=== PATIENT | female | born 1980 | race Caucasian/White ===

== ENCOUNTER 2016-12-19 22:11 | Emergency (ER) | payer BC, OTHER ==
[~2016-12-19] VITALS: Ht 170.2 cm; Wt 62.6 kg
[~2016-12-19 22:11] MED LIST: BCPILLS PO; BUPRTAB51 PO; CNC/54 PO; FLNIN NAE; LORA10CA2 PO; OLOP0.1S2 OPB
[2016-12-19 22:15] VITALS: BP 125/83; TEMP 36.7; Ht 170.2 cm; Wt 62.6 kg
[2016-12-19] MEDS ORDERED: FLUT0.15 NAE (23:07)
[2016-12-19] MEDS ORDERED: LEVO25TA5 PO (23:07)
--- NOTE | 2016-12-19 23:18 | DIAGNOSTIC IMAGING REPORT ---
LEFT HAND MIN 3 VIEWS ROUTINE CLINICAL HISTORY: Left hand/thumb injury. COMPARISON: None FINDINGS: Alignment of the left hand is anatomic. Carpal bones are intact. No acute fracture is identified within the left hand. IMPRESSION: No acute fracture or dislocation of the left hand. Electronically signed by: Jaxson Ernst M.D. 12/19/2016 11:16 PM Dictated Date/Time: 12/19/2016 11:15 PM
[2016-12-19] MEDS ORDERED: NORCO 5/325MG HOME PACK PO ONE (23:45)
[2016-12-20] VITALS: PULSE 81; O2SAT 97
--- NOTE | 2016-12-20 00:16 | EMERGENCY ROOM VISIT NOTE ---
ED Visit Note First contact with patient: 22:22 CHIEF COMPLAINT: Hand injury HISTORY OF PRESENT ILLNESS: This 36-year-old female patient presented to the emergency department after they injured the left hand about 3 hours ago. The patient states that she was trying to pop a larger balloon, and struck her left hand at the base of the thumb with her right hand. The patient rates the pain as dull and 7/10. The patient denies any numbness or tingling. The patient does not have injuries to the wrist. The patient has not had a previous fracture to this hand. REVIEW OF SYSTEMS: A 6 system review of systems was completed with positives and pertinent negatives in the HPI. 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 GENERAL : White female, in no acute distress, but appears to be in pain, well-developed , well-nourished. MUSCULOSKELETAL: There is no deformity of the left hand. There is tenderness over the base of the thumb into the distal radius. There is no thenar or hypothenar eminence atrophy. Normal thumb opposition to all fingers. 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 There is no laceration. Capillary refill less than 2 seconds. No tenderness of the fingers or wrist. Full range of motion of the wrist. No snuff box tenderness. Radial pulse 2+. NEURO: Alert and oriented to person, place, and time. Normal sensation to light and sharp touch. LEFT HAND MIN 3 VIEWS ROUTINE CLINICAL HISTORY: Left hand/thumb injury. COMPARISON: None FINDINGS: Alignment of the left hand is anatomic. Carpal bones are intact. No acute fracture is identified within the left hand. IMPRESSION: No acute fracture or dislocation of the left hand. EMERGENCY DEPARTMENT COURSE: Physical exam and history were performed. Nursing notes and EMR were reviewed. The patient appears to have left hand pain after striking it with her right hand. X-ray was obtained and does not show evidence of fracture dislocation. The patient will be given a home pack of Vicodin and treated conservatively with [id number] analgesics. She was to follow with her primary care physician with any ongoing or persisting symptoms. Problem List Medical Problems: (1) Attention deficit hyperactivity disorder, predominantly inattentive type Status: Chronic (2) Depression Status: Chronic (3) Raynaud's phenomenon Status: Chronic (4) s/p excisional biospy cervical lymph node Permanent Comment: 2006 Path: benign with reactive hyperplasia Status: Resolved (5) Solitary nodule of lung Permanent Comment: 4.5 mm RUL nodule noted on CT chest [facility] 10/16/11. Status: Chronic Current/Historical Medications Scheduled Control Pills ( Control Pills), 1 TAB PO DAILY Bupropion Hcl (Wellbutrin Xl), 300 MG PO DAILY Fluticasone Propionate (Nasal) (Flonase Allergy Relief), 2 SPRAYS ANGELITO DAILY Levothyroxine Sodium (Levothyroxine Sodium), 25 MCG PO DAILY Loratadine (Claritin), 10 MG PO DAILY Methylphenidate Hcl (Concerta), 54 MG PO DAILY Allergies Coded Allergies: No Known Allergies (Verified , 12/19/16) Vital Signs Date Time Temp Pulse Resp B/P (MAP) Pulse Ox O2 Delivery O2 Flow Rate FiO2 12/20/16 00:00 81 17 97 12/19/16 22:15 36.7 74 18 125/83 97 Room Air Medications Administered Medications (Trade) Dose Ordered Sig/Kaley Route Start Time Stop Time Status Last Admin Dose Admin Acetaminophen/ Hydrocodone Bitart ([place] 5/325mg Home Pack) 1 homepack UD ONCE PO 12/19/16 23:45 12/19/16 23:46 DC 12/19/16 23:58 1 HOMEPACK Departure Information Impression Primary Impression: Contusion of left hand Dispostion Home / Self-Care Condition GOOD Forms HOME CARE DOCUMENTATION FORM, IMPORTANT VISIT INFORMATION Patient Instructions My [facility] Additional Instructions You were seen and evaluated today on an emergency basis only. This is not a substitute for, or an effort to provide, complete comprehensive medical care. It is not possible to recognize and treat all injuries or illnesses in a single emergency department visit. For this reason it is recommended that you followup with your primary care physician if symptoms persist over the next week. For baseline pain relief you may alternate ibuprofen and acetaminophen every 4 hours for pain control. Take 600 mg ibuprofen (Advil) and then 4 hours later take 1000 mg acetaminophen (Tylenol). Do not take more than 3000 mg acetaminophen in a single day. [place] (hydrocodone/acetaminophen) 5/325 mg (homepack) every 6 hours as needed for worsening breakthrough pain. Do not drink or drive on [place]. This medication will likely make you tired. Do not take [place] and Tylenol at the same time as both contain acetaminophen. [place] may cause constipation. You may wish to take an [id number] stool softener like Colace if this occurs. You are welcome to return to the emergency department anytime with new, worsening, or concerning symptoms.
== END 2016-12-20 | disposition home or self-care (01) ==
LOC: C.EDB 22:11 → C.EDC 12-20
DX: S60.222A Contusion of left hand, initial encounter (principal); W22.8XXA Striking against or struck by other objects, initial encounter; F90.9 Attention-deficit hyperactivity disorder, unspecified type; F32.9 Major depressive disorder, single episode, unspecified; Z79.899 Other long term (current) drug therapy; Z98.890 Other specified postprocedural states

== ENCOUNTER 2017-06-12 22:06 | Emergency (ER) | payer OTHER ==
[~2017-06-12] VITALS: Ht 170.2 cm; Wt 65.0 kg
[~2017-06-12 22:06] MED LIST changes: -CNC/54 PO; -FLNIN NAE; -OLOP0.1S2 OPB
[2017-06-12 22:10] VITALS: TEMP 36.3; Ht 170.2 cm; Wt 65.0 kg
[2017-06-12] MEDS ORDERED: METHYLPREDNISOLONE 125 MG VIAL IV STA (22:13)
[2017-06-12] MEDS ORDERED: FAMOTIDINE 20MG/5ML IV PUSH IV STA (22:13)
[2017-06-12] MEDS ORDERED: EPINEPHRINE ADULT AUTO-INJECT 0.3 MG SYR IM ONE (22:15)
[2017-06-12 22:48] VITALS: O2SAT 100
[2017-06-12] MEDS ORDERED: LEVO50TA6 PO (22:49)
[2017-06-12] MEDS ORDERED: ALUMINUM/MAGNESIUM SUSP 30 ML UDC PO STA (23:03)
[2017-06-12] MEDS ORDERED: LIDOCAINE HCL 2% VISC SOLN 20 ML UDC PO STA (23:03)
[2017-06-12] MEDS ORDERED: FLUT0.15 NAE (23:07)
[2017-06-12] MEDS ORDERED: LEVO25TA5 PO (23:07)
[2017-06-12] MEDS ORDERED: CNC/54 PO (23:45)
[2017-06-12] MEDS ORDERED: DiphenhydrAMINE HCL 50 MG/ML VIAL IV STA (23:52)
--- NOTE | 2017-06-12 23:57 | EMERGENCY ROOM VISIT NOTE ---
History First contact with patient: 22:08 Chief Complaint: ALLERGIC REACTION Stated Complaint: HIVES, THROAT SWELLING Nursing Triage Summary: pt reports "I think I am having an allergic reaction to peach gummi rings" I developed hives approximately 30 or 40 min after eating , I took 2 benedryl and this helped but now feel like my throat is tight and the itch is worse History of Present Illness The patient is a 37 year old female who presents to the Emergency Room with complaints of allergic reaction shortly after eating peach gummie rings. Patient states last year she had a soda with peach flavor that had a similar reaction. This time is a little bit worse. She complains of throat tightness and rash with itchiness. She took 2 Benadryl at 8pm. Patient denies chest pain , dyspnea, abdominal pain, facial swelling, tongue swelling, lightheadedness or dizziness. No history of anaphylaxis in the past. No other new food soaps or detergents. Review of Systems An 10 system review of systems was completed with positives and pertinent negatives listed in the HPI. Past Medical/Surgical History Medical Problems: (1) Attention deficit hyperactivity disorder, predominantly inattentive type (2) Depression (3) Raynaud's phenomenon (4) s/p excisional biospy cervical lymph node (5) Solitary nodule of lung Social History Smoking Status: Never Smoker Alcohol Use: none Drug Use: none Marital Status: Housing Status: lives with family Occupation Status: employed Current/Historical Medications Scheduled Control Pills ( Control Pills), 1 TAB PO DAILY Bupropion Hcl (Wellbutrin Xl), 300 MG PO DAILY Fluticasone Propionate (Nasal) (Flonase Allergy Relief), 2 SPRAYS ANGELITO DAILY Levothyroxine Sodium (Levothyroxine Sodium), 25 MCG PO DAILY Levothyroxine Sodium (Levothyroxine Sodium), 50 MG PO QAM Loratadine (Claritin), 10 MG PO DAILY Methylphenidate Hcl (Concerta), 54 MG PO DAILY Physical Exam Vital Signs Date Time Temp Pulse Resp B/P (MAP) Pulse Ox O2 Delivery O2 Flow Rate FiO2 06/12/17 22:52 63 06/12/17 22:48 100 Room Air 06/12/17 22:48 100 Room Air 06/12/17 22:10 36.3 73 20 124/78 100 Room Air Physical Exam VITALS: Vitals are noted on the nurse's note and reviewed by myself. Vital signs stable. GENERAL: Pleasant female speaking in full sentences, in no acute distress, nondiaphoretic, well-developed well-nourished. SKIN: Diffuse erythematous blanchable dermatitis throughout the body most consistent with allergic reaction. the rest of the skin was without rashes, erythema, edema, or bruising. There is no tenting of the skin. Capillary reflex less than 2 seconds. HEAD: Normocephalic atraumatic. EARS: External auditory canals clear, tympanic membranes pearly vences without erythema or effusion bilaterally. EYES: Pupils equal round and reactive to light and accommodation. Conjunctivae without injection, sclerae without icterus. Extraocular movements intact. NOSE: Patent, turbinates without inflammation or discharge. MOUTH: Mucous membranes moist. Pharynx without erythema or exudate. Uvula midline. Airway patent. Tongue does not deviate. NECK: Supple without nuchal rigidity. No lymphadenopathy. No thyromegaly. Cervical spine is nontender. No JVD. HEART: Regular rate and rhythm without murmurs gallops or rubs. LUNGS: Clear to auscultation bilaterally without wheezes, rales or rhonchi. No retractions or accessory muscle use. ABDOMEN: Positive bowel sounds x 4. Normal tympanic percussion. Soft, nontender, without masses or organomegaly. Hua sign negative. No guarding or rebound tenderness. No CVA tenderness MUSCULOSKELETAL: No muscle atrophy, erythema, or edema noted. NEURO: Patient was alert and oriented to person place and time. Normal sensation to light and sharp touch. No focal neurological deficits. Medical Decision & Procedures Medications Administered Medications (Trade) Dose Ordered Sig/Kaley Route Start Time Stop Time Status Last Admin Dose Admin Methylprednisolone Sodium Succinate (Solu-Medrol IV) 125 mg NOW STAT IV 06/12/17 22:13 06/12/17 22:14 DC 06/12/17 22:36 125 MG Famotidine (Pepcid 20mg Iv Push) 20 mg ONE STAT IV 06/12/17 22:13 06/12/17 22:15 DC 06/12/17 22:36 20 MG Epinephrine (Epipen) 0.3 mg NOW ONCE IM 06/12/17 22:15 06/12/17 22:16 DC 06/12/17 22:49 0.3 MG Lidocaine HCl (Viscous Lidocaine 2% Soln) 10 ml NOW STAT PO 06/12/17 23:03 06/12/17 23:04 DC 06/12/17 23:19 10 ML Al Hydroxide/Mg Hydroxide (Maalox Susp) 30 ml NOW STAT PO 06/12/17 23:03 3 23:04 DC 06/12/17 23:19 30 ML ED Course Prior records/ancillary studies reviewed. Triage Nursing notes reviewed. Additional history obtained from family. The patient's history was concerning for possible allergic reaction. Differential diagnosis: Etiologies such as allergic reaction, anaphylaxis, urticaria, Solis-Fernando syndrome, toxic epidermal necrolysis, erythema multiforme, cellulitis, as well as others were entertained. Physical examination: As above. ER treatment provided: Continuous cardiac monitoring Pepcid 20 mg IV Decadron 10 mg IV Benadryl 50mg IV On reassessment the patient felt better. Diagnostic interpretation by me: Deferred It appears the patient had an allergic reaction. The above treatment did well to reverse the symptoms. After prolonged monitoring and frequent reassessments the patient did very well and symptoms resolved. The patient was counseled on the spectrum of this disease process and told to avoid potential triggers. I gave my usual and customary discussion regarding this issue. By the evaluation outlined above emergent etiologies such as recurring anaphylaxis, anaphylatic shock, airway compromise, Solis-Fernando syndrome, toxic epidermal necrolysis, erythema multiforme, infectious etiologies, as well as others were deemed relatively unlikely. The pt informed about the findings as listed above. All questions were answered and pleased with the treatment. Return instructions were outlined and the patient was discharged in stable condition. Outpatient prescription management: EpiPen prednisone Referral: The patient was referred back to primary care physician for follow-up in 2-3 days for a recheck of the current condition. or The patient was referred to Allergy/Immunology for further evaluation. The chart was completed utilizing [employer] voice recognition software. Grammatical errors, random word insertions, pronoun errors, and incomplete sentences are an occassional consequence of this system due to software limitations, ambient noise, and hardware issues. Any formal questions or concerns about the content, text, or information contained within the body of this dictation should be directly addressed to the physician assistant professor of education for clarification. Medical Decision As above Medication Reconcilliation Current Medication List: was personally reviewed by me Blood Pressure Screening Patient's blood pressure: Normal blood pressure Impression Primary Impression: Allergic reaction Departure Information Dispostion Home / Self-Care Condition GOOD Referrals No Doctor, Assigned (PCP) Patient Instructions My [facility] Additional Instructions DO NOT drive, drink alcohol, operate machinery, or perform dangerous activities today. You were given medications in the ER that can affect your ability to safely function or operate a vehicle. Do not have any foods containing peach products until cleared by the tmd teacher assistant. Epi-Pen: Use one injection as instructed for severe allergic reactions associated with shortness of breath, difficulty breathing, or throat or tongue swelling. If you use this injection call 911 or proceed immediately to the nearest Emergency Room. Prednisone 50mg: Once daily until the prescription is finished. It is best to take this earlier in the day as some patients note occasional difficulty falling asleep when taken in the late evening. Diphenhydramine(Benadryl) 25mg: use 25 to 50 mg every six hours for swelling, itching, or hives. This medication is sedating and will cause drowsiness. Avoid alcohol, operating machinery or dangerous equipment, working on ladders or roofs, DRIVING, or situations where being under the influence may be dangerous. Zantac 75: Take two pills twice a day along with Benadryl as needed for swelling , itching, or hives. Most people know this for its affect on the stomach, but it also acts similar to, but less potent than Benadryl for allergic reactions. Both the Benadryl and the Zantac are available [id number]. Continue current medications. Return to the emergency department for worsening of your rash, swelling of your face, lips, tongue, or throat, difficulty breathing, vomiting, or as needed. Follow-up with your primary care physician or tmd teacher assistant in 2 to 3 days for a recheck of your current condition. Problem Qualifiers Primary Impression: Allergic reaction Encounter type: initial encounter Qualified Codes: T78.40XA - Allergy, unspecified, initial encounter
[2017-06-13] MEDS ORDERED: PRED50TA PO (00:31)
[2017-06-13 00:37] VITALS: BP 99/60; PULSE 67; O2SAT 100
== END 2017-06-13 00:51 | disposition home or self-care (01) ==
LOC: C.EDB 22:07
DX: T78.40XA Allergy, unspecified, initial encounter (principal); X58.XXXA Exposure to other specified factors, initial encounter; Z79.3 Long term (current) use of hormonal contraceptives